=== PATIENT | female | born 1945 | race Caucasian/White ===

== ENCOUNTER 2019-01-26 23:38 | Emergency (ER) | payer MEDICARE, BC ==
[2019-01-26] MEDS ORDERED: cloNIDine 0.1 MG Tab PO ONE (23:42)
[2019-01-27] MEDS ORDERED: cloNIDine 0.1 MG Tab PO ONE (00:09)
[2019-01-27 00:22] LABS: CHLORIDE,CL 101 mmol/L (98-107); SODIUM,NA 138 mmol/L (136-145)
--- NOTE | 2019-01-27 00:50 | EDM.PDOC ---
ED HPI GENERAL MEDICAL PROBLEM - General Chief Complaint: Cardiovascular Problem Stated Complaint: High blood pressure Time Seen by Provider: 01/26/19 23:50 Source of Information: Reports: Patient History Limitations: Reports: No Limitations - History of Present Illness INITIAL COMMENTS - FREE TEXT/NARRATIVE: Patient is a 73-year-old female with known history of hypertension recently her medications were changed currently taking clonidine 0.1 mg twice a day blood pressure was elevated 203/104. Onset: Gradual Duration: Hour(s):, Getting Worse Location: Reports: Generalized Quality: Reports: Ache Severity: Moderate Improves with: Reports: Medication Worsens with: Reports: None Context: Reports: Exercise Associated Symptoms: Reports: No Other Symptoms, Other (Generalized aches and pains resolve with medications controlled) Neck Pain Score (Numeric/FACES): 7 - Related Data Allergies Allergy/AdvReac Type Severity Reaction Status Date / Time ciprofloxacin Allergy Diarrhea Verified 01/26/19 23:47 methotrexate Allergy Rash Verified 01/26/19 23:47 sulfamethoxazole Allergy Hives Verified 01/26/19 23:47 [From Bactrim] trimethoprim [From Bactrim] Allergy Hives Verified 01/26/19 23:47 Home Meds: Home Meds Aspirin [Ecotrin] 1 tab PO DAILY 03/08/14 [History] Triamcinolone Acetonide [Kenalog 0.1% Oint] 1 applic TOP TID PRN 03/08/14 [ History] Cholecalciferol (Vitamin D3) [Vitamin D3] 1,000 units PO DAILY 04/22/16 [History ] Clobetasol [Clobetasol 0.05%] 30 gm TOP BID PRN 04/22/16 [History] Hydrocortisone [Proctozone-HC 2.5% Crm] 1 gm RECTAL DAILY PRN 04/22/16 [History] Omeprazole 20 mg PO DAILY PRN 04/22/16 [History] Docusate Sodium/Sennosides [Senna Plus] 1 tab PO BID PRN #100 tablet 05/20/16 [ Rx] Menthol/Methyl Salicylate [Icy Hot Cream] 0 gm TOP ASDIRECTED PRN #0 tube [Rx] Multivitamins [Tab-A-Neha] 1 tab PO BEDTIME tablet 05/20/16 [Rx] Polyethylene Glycol 3350 [MiraLAX] 17 gm PO TID PRN #30 packet 05/20/16 [Rx] Carvedilol 25 mg PO BIDMEALS 01/26/19 [History] Fluticasone/Salmeterol [Advair 250-50 Diskus] 1 puff INH ASDIRECTED 01/26/19 [ History] Pravastatin [Pravachol] 20 mg PO BEDTIME 01/26/19 [History] cloNIDine [Catapres] 1 tab PO BID 01/26/19 [History] hydroCHLOROthiazide [Hydrochlorothiazide] 12.5 mg PO DAILY 01/26/19 [History] Past Medical History HEENT History: Reports: Cataract, Sinusitis Respiratory History: Reports: Pneumonia, Recurrent, SOB Gastrointestinal History: Reports: Hemorrhoids Musculoskeletal History: Reports: Arthritis, Osteoarthritis, Osteoporosis Neurological History: Reports: Headaches, Chronic Psychiatric History: Reports: Depression Endocrine/Metabolic History: Reports: Osteoporosis Hematologic History: Reports: Blood Transfusion(s) Oncologic (Cancer) History: Reports: Other (See Below) Other Oncologic History: skin right arm - Infectious Disease History Infectious Disease History: Reports: Chicken Pox - Past Surgical History Head Surgeries/Procedures: Reports: None HEENT Surgical History: Reports: Cataract Surgery GI Surgical History: Reports: Colonoscopy Endocrine Surgical History: Reports: None Musculoskeletal Surgical History: Reports: Knee Replacement, Shoulder Surgery Oncologic Surgical History: Reports: Other (See Below) Dermatological Surgical History: Reports: Skin Biopsy Social & Family History - Family History Musculoskeletal: Reports: Arthritis, Osteoarthritis, Osteoporosis Endocrine/Metabolic: Reports: Diabetes, Type I - Tobacco Use Smoking Status *Q: Never Smoker Second Hand Smoke Exposure: No - Caffeine Use Caffeine Use: Reports: None - Recreational Drug Use Recreational Drug Use: No - Living Situation & Occupation Living situation: Reports: ED ROS GENERAL - Review of Systems Review Of Systems: See Below Constitutional: Reports: No Symptoms HEENT: Reports: No Symptoms Respiratory: Reports: No Symptoms Cardiovascular: Reports: No Symptoms, Other (History over 10 on) Endocrine: Reports: No Symptoms GI/Abdominal: Reports: No Symptoms : Reports: No Symptoms Musculoskeletal: Reports: No Symptoms Skin: Reports: Cyanosis (Toes) Neurological: Reports: No Symptoms Psychiatric: Reports: No Symptoms Hematologic/Lymphatic: Reports: No Symptoms Immunologic: Reports: No Symptoms ED EXAM, GENERAL - Physical Exam Exam: See Below Exam Limited By: No Limitations General Appearance: Alert Ears: Normal External Exam Ear Exam: Bilateral Ear: Auricle Normal, Canal Normal, TM normal Nose: Normal Inspection, Normal Mucosa, No Blood Throat/Mouth: Normal Inspection, Normal Lips, Normal Teeth, Normal Gums, Normal Oropharynx, Normal Voice, No Airway Compromise Head: Atraumatic, Normocephalic Neck: Normal Inspection, Supple, Non-Tender, Full Range of Motion Respiratory/Chest: No Respiratory Distress, Lungs Clear, Normal Breath Sounds, No Accessory Muscle Use, Chest Non-Tender Cardiovascular: Normal Peripheral Pulses, Regular Rate, Rhythm, No Edema, No Gallop, No JVD, No Murmur, No Rub GI/Abdominal: Normal Bowel Sounds, Soft, Non-Tender, No Organomegaly, No Distention, No Abnormal Bruit, No Mass (Female) Exam: Deferred Rectal (Female) Exam: Heme - Stool Back Exam: Normal Inspection, Full Range of Motion, NT Extremities: Other (Cyanosis of lower extremities secondary to Raynaud's phenomena) Neurological: Alert, Oriented, CN II-XII Intact, Normal Cognition, Normal Gait, Normal Reflexes, No Motor/Sensory Deficits Psychiatric: Normal Affect, Normal Mood Skin Exam: Warm, Dry, Intact, Normal Color, No Rash Course - Vital Signs Last Recorded V/S: Last Vital Signs Temp 98.1 F 01/26/19 23:53 Pulse 86 01/26/19 23:53 Resp 16 01/26/19 23:53 BP 200/103 H 01/26/19 23:53 Pulse Ox 100 01/26/19 23:53 - Orders/Labs/Meds Labs: Laboratory Tests 01/26/19 01/26/19 Range/Units 00:03 00:03 WBC 9.0 (4.0-10.2) K/uL RBC 4.83 (3.77-5.09) M/uL Hgb 14.6 D (11.7-15.5) g/dL Hct 43.8 (34.0-46.0) % MCV 90.7 D (84.0-98.0) fL MCH 30.2 (28.2-33.3) pg MCHC 33.3 (31.7-36.0) g/dL RDW 13.9 (11.2-14.1) % Plt Count 256 D (150-350) K/uL Neut % (Auto) 68.9 (45.0-80.0) % Lymph % (Auto) 20.3 (10.0-50.0) % [place] % (Auto) 7.8 (2.0-14.0) % Eos % (Auto) 2.8 (0.0-5.0) % Baso % (Auto) 0.2 (0.0-2.0) % Neut # (Auto) 6.19 (1.40-7.00) K/uL Lymph # (Auto) 1.82 (0.50-3.50) K/uL [place] # (Auto) 0.70 (0.00-1.00) K/uL Eos # (Auto) 0.25 (0.00-0.50) K/uL Baso # (Auto) 0.02 (0.00-0.20) K/uL Sodium 138 (136-145) mmol/L Potassium 4.3 (3.5-5.1) mmol/L Chloride 101 (98-107) mmol/L Carbon Dioxide 26.5 (21.0-32.0) mmol/L BUN 17 (7-18) mg/dL Creatinine 0.83 (0.51-1.17) mg/dL Est Cr Clr Drug Dosing 47.74 mL/min Estimated GFR (MDRD) > 60 mL/min Glucose 100 (74-106) mg/dL Calcium 9.6 (8.5-10.1) mg/dL Meds: Medications Discontinued Medications Generic Name Dose Route Start Last Admin Trade Name Freq PRN Reason Stop Dose Admin Clonidine HCl 0.1 mg 01/26/19 23:42 01/26/19 23:50 Catapres PO 01/26/19 23:43 0.1 mg ONETIME ONE Administration Clonidine HCl 0.1 mg 01/27/19 00:09 Catapres PO 01/27/19 00:10 ONETIME ONE Departure - Departure Time of Disposition: 00:50 Disposition: Home, Self-Care 01 Condition: Good Clinical Impression: Hypertensive heart disease Qualifiers: Heart failure presence: unspecified whether heart failure present Qualified Code(s): I11.9 - Hypertensive heart disease without heart failure Referrals: Tiffany Anders MD [Primary Care Provider] - Care Plan Goals: Patient will be sent home her blood pressure was 132 /70 after being treated with clonidine 0.1 at this time we instructed the patient to take to clonidine' s in the morning and 2 in the afternoon and recheck her blood pressures follow- up with primary for medication adjustment
[2019-01-27 01:36] VITALS: BP 114/58
== END 2019-01-27 01:00 | disposition home or self-care (01) ==
LOC: LL.ED 23:38
DX: I11.9 Hypertensive heart disease without heart failure (principal); M19.90 Unspecified osteoarthritis, unspecified site; F32.9 Major depressive disorder, single episode, unspecified; Z79.82 Long term (current) use of aspirin; Z79.899 Other long term (current) drug therapy; Z88.1 Allergy status to other antibiotic agents; Z88.8 Allergy status to other drugs, medicaments and biological substances
CPT/HCPCS: 36415; 80048; 85025; 99284; A9270

== ENCOUNTER 2019-10-24 22:28 | Emergency (ER) | payer MEDICARE, BC ==
[2019-10-24 22:43] VITALS: BP 122/62; PULSE 74
--- NOTE | 2019-10-24 22:45 | EDM.PDOC ---
ED HPI GENERAL MEDICAL PROBLEM - General Chief Complaint: ENT Problem Stated Complaint: Nose Bleed Time Seen by Provider: 10/24/19 22:45 Source of Information: Reports: Patient, Old Records ([facility] chart/EMR) History Limitations: Reports: No Limitations - History of Present Illness INITIAL COMMENTS - FREE TEXT/NARRATIVE: The patient drove herself to the emergency room via private automobile for evaluation of moderate right-sided epistaxis, which started at about 18:15 hours this evening. She does take a daily aspirin, including this evening, however no history of recent injury, etc. The patient does have a history of distant epistaxis in the past, however this is not a significant recurrent problem. Her epistaxis has been refractory to nasal packing with cotton balls, which the patient tried this evening. The patient denies any chest pain/pressure , heart flutter, dizziness, orthostasis, orthopnea, diaphoresis, paresthesias, recent decreased exercise tolerance, or any other anginal-type symptoms. No recent history of abdominal pain, heartburn, nausea, diarrhea, melena, gross hematochezia, or any food intolerance, including fatty foods, etc.. The patient also denies any recent fever, wheezing, dyspnea, etc. with stable chronic nonproductive cough secondary to her COPD. She denies any pain or discomfort. Onset: Today, Sudden Onset Date: 10/24/19 Onset Time: 18:15 Duration: Intermittent, Improving Location: Reports: Other (Right epistaxis is no pain) Quality: Reports: Same as Previous Episode Severity: Moderate Improves with: Reports: None Worsens with: Reports: None Context: Reports: Other (As above). Denies: Sick Contact, Trauma Associated Symptoms: Reports: Cough (Stable chronic), Shortness of Breath ( Stable chronic). Denies: Confusion, Chest Pain, cough w sputum, Diaphoresis, Fever/Chills, Headaches, Loss of Appetite, Malaise, Nausea/Vomiting, Rash, Seizure, Syncope, Weakness Treatments [employer]: Reports: Other (see below) (As above) - Related Data Allergies Allergy/AdvReac Type Severity Reaction Status Date / Time ciprofloxacin Allergy Diarrhea Verified 10/24/19 22:52 methotrexate Allergy Rash Verified 10/24/19 22:52 sulfamethoxazole Allergy Hives Verified 10/24/19 22:52 [From Bactrim] trimethoprim [From Bactrim] Allergy Hives Verified 10/24/19 22:52 Home Meds: Home Meds Triamcinolone Acetonide [Kenalog 0.1% Oint] 1 applic TOP TID PRN 03/08/14 [ History] Cholecalciferol (Vitamin D3) [Vitamin D3] 1,000 units PO DAILY 04/22/16 [History ] Clobetasol [Clobetasol 0.05%] 30 gm TOP BID PRN 04/22/16 [History] Hydrocortisone [Proctozone-HC 2.5% Crm] 1 gm RECTAL DAILY PRN 04/22/16 [History] Omeprazole 20 mg PO BIDMEALS 04/22/16 [History] Docusate Sodium/Sennosides [Senna Plus] 1 tab PO BID PRN #100 tablet 05/20/16 [ Rx] Multivitamins [Tab-A-Neha] 1 tab PO BEDTIME tablet 05/20/16 [Rx] Polyethylene Glycol 3350 [MiraLAX] 17 gm PO TID PRN #30 packet 05/20/16 [Rx] Fluticasone/Salmeterol [Advair 250-50 Diskus] 1 puff INH DAILY 01/26/19 [History ] Pravastatin [Pravachol] 20 mg PO BEDTIME 01/26/19 [History] carvediloL [Carvedilol] 25 mg PO BIDMEALS 01/26/19 [History] cloNIDine [Catapres] 0.1 mg PO BID 01/26/19 [History] hydroCHLOROthiazide [Hydrochlorothiazide] 12.5 mg PO DAILY 01/26/19 [History] Menthol/Methyl Salicylate [Icy Hot Cream] 1 applic TOP ASDIRECTED PRN 10/24/19 [ History] Past Medical History HEENT History: Reports: Cataract, Sinusitis. Denies: Hard of Hearing, Impaired Vision Cardiovascular History: Reports: Cardiomyopathy, High Cholesterol, Hypertension , Other (See Below). Denies: Blood Clots/VTE/DVT, CAD, IA Other Cardiovascular History: Left ventricular hypertrophy and left atrial enlargement by echocardiogram. History of d-dimer elevation in 2012 with negative workup as below. Respiratory History: Reports: Bronchitis, Recurrent, COPD, Intubation, Previous , Pneumonia, Recurrent, Sleep Apnea, SOB, Other (See Below). Denies: Intubation , Difficult, PE Other Respiratory History: Severe obstructive sleep apnea. Gastrointestinal History: Reports: Cholelithiasis, Chronic Constipation, GERD, Hemorrhoids : 0 Para: 0 LMP (Approximate): Menopausal Musculoskeletal History: Reports: Arthritis, Back Pain, Chronic, Fibromyalgia, Neck Pain, Chronic, Osteoarthritis, Osteoporosis, RA, Other (See Below). Denies : SLE Other Musculoskeletal History: Rheumatoid arthritis with positive SUDEEP. Right shoulder rotator cuff tear requiring surgery as below. Plantar fasciitis. Neurological History: Reports: Headaches, Chronic Psychiatric History: Reports: Anxiety, Depression Endocrine/Metabolic History: Reports: Obesity/BMI 30+, Osteopenia, Osteoporosis , Other (See Below) Other Endocrine/Metabolic History: Hypoalbuminemia. Hematologic History: Reports: Anemia, Blood Transfusion(s), Other (See Below) Other Hematologic History: Postoperative anemia after bilateral total knee arthroplasty with blood transfusion on 05/01/16. Oncologic (Cancer) History: Reports: Basal Cell Carcinoma, Other (See Below) Other Oncologic History: Basal cell carcinoma of the right arm Dermatologic History: Reports: Urticaria - Infectious Disease History Infectious Disease History: Reports: Chicken Pox - Past Surgical History Head Surgeries/Procedures: Reports: None HEENT Surgical History: Reports: Cataract Surgery, Oral Surgery, Other (See Below). Denies: Adenoidectomy, Tonsillectomy Other HEENT Surgeries/Procedures: Bilateral cataract surgery in about 2009. Multiple teeth extractions with complete upper dentures. GI Surgical History: Reports: Cholecystectomy, Colonoscopy, Other (See Below) Other GI Surgeries/Procedures: Laparoscopic cholecystectomy on 09/17/11. Endocrine Surgical History: Reports: None Musculoskeletal Surgical History: Reports: Knee Replacement, Shoulder Surgery, Other (See Below) Other Musculoskeletal Surgeries/Procedures:: Right shoulder rotator cuff repair with hemiarthroplasty on 02/14/15. Bilateral total knee arthroplasty on 04/17/16. Bilateral bunionectomy. Oncologic Surgical History: Reports: Other (See Below) Other Oncologic Surgeries/Procedures: Excision of basal cell carcinoma from the right arm as above. Dermatological Surgical History: Reports: None - Past Imaging History Past Imaging History: Reports: Cardiac Echo (Suboptimal echocardiogram on with findings as above with ejection fraction of 73%.), CAT Scan (Negative CTA of the chest using PE protocol on 12/31/11.), Mammogram (Last mammogram on .), MRI (MRI of the right shoulder on 10/18/14. MRI of the left hip in lumbar spine on 01/26/12.), Sleep Study (Positive sleep study on 06/13/18.), Stress Testing (Negative Lexiscan Cardiolite evaluation on 08/28/19 with ejection fraction of 64%.), Venous Doppler (Legs bilaterally on 01/01/12.) Social & Family History - Family History Cardiac: Reports: Other (See Below) Other Cardiac Family History: Unknown type of heart disease on maternal side. Musculoskeletal: Reports: Arthritis, Osteoarthritis, Osteoporosis Endocrine/Metabolic: Reports: Diabetes, Type I Oncologic: Reports: Breast, Lung, Other (See Below) Other Oncologic Family History: Mother with breast cancer in her early 70s. Brother with lung cancer. - Tobacco Use Smoking Status *Q: Former Smoker Tobacco Use Within Last Twelve Months: No Years of Tobacco use: 7 Packs/Tins Daily: 0.2 Packs/Tins Daily Comment: She smoked between ages 18 and 25. Used Tobacco, but Quit: Yes Smoking Cessation Information Provided To Patient: No Second Hand Smoke Exposure: No Second Hand Smoke Education Provided: No - Caffeine Use Caffeine Use: Reports: None ED ROS ENT - Review of Systems Review Of Systems: Comprehensive ROS is negative, except as noted in HPI. ED EXAM, ENT - Physical Exam Exam: See Below Exam Limited By: No Limitations General Appearance: Alert, WD/WN, No Apparent Distress Eye Exam: Bilateral Eye: EOMI, Normal Inspection (No nystagmus), PERRL Ears: Normal External Exam, Normal Canal, Hearing Grossly Normal, Normal TMs Nose: Dried Blood (Right nares and), Injected Turbinates. No: Nasal Tenderness , Nasal Ecchymosis, Septal Hematoma, Active Bleeding Mouth/Throat: Bleeding (Dry blood in the hypopharynx from epistaxis as above). No: Normal Teeth (Complete upper dentures with multiple missing teeth lowers and the patient not normally having lower partials.) Head: Atraumatic, Normocephalic. No: Facial Tenderness, Sinus Tenderness Neck: Supple, Non-Tender, Full Range of Motion, Carotid Bruit (Mild bilateral carotid bruits). No: Lymphadenopathy (L), Lymphadenopathy (R), Thyromegaly Respiratory/Chest: No Respiratory Distress, Lungs Clear, Normal Breath Sounds, No Accessory Muscle Use, Chest Non-Tender. No: Pleural Rub, Retractions Cardiovascular: Normal Peripheral Pulses, Regular Rate, Rhythm, No Edema, No Gallop, No JVD, No Murmur, No Rub. No: Gallop/S3, Gallop/S4, Friction Rub GI/Abdominal: Normal Bowel Sounds, Soft, Non-Tender, No Organomegaly, No Distention, No Abnormal Bruit, No Mass, Other (Obese). No: Guarding (Female) Exam: Deferred Rectal (Female) Exam: Deferred Back: Normal Inspection, Full Range of Motion. No: CVA Tenderness (L), CVA Tenderness (R), Muscle Spasm Extremities: Normal Inspection, Normal Range of Motion, Non-Tender, No Pedal Edema, Normal Capillary Refill. No: Aurelio's Sign Neurological: Alert, Oriented, CN II-XII Intact, Normal Cognition, Normal Gait, No Motor/Sensory Deficits Psychiatric: Normal Affect, Normal Mood Skin: Warm, Dry, Intact, Normal Color, No Rash. No: Diaphoretic, Ecchymosis, Wound/Incision Lymphatic: No Adenopathy ED ENT PROCEDURES - Epistaxis Procedure Indication: Epistaxis Recent anticoagulants/antiplatlets: Yes (Aspirin) Uncontrolled HTN: No Recent septal/nasal surgery: No Site of bleeding: Right Nare Clearing of clots: Other (Gargle) Ice pack to area: Yes Anterior Packing: Petrolatum Guaze Strip (Bilaterally) Complications: No Course - Vital Signs Last Recorded V/S: Last Vital Signs Temp 36.6 C 10/24/19 22:30 Pulse 74 10/24/19 22:30 Resp 16 10/24/19 22:30 BP 122/62 10/24/19 22:30 Pulse Ox 96 10/24/19 22:30 Vital Signs - 24 hr 10/24/19 22:30 Temperature [ 36.6 C Temporal] Pulse, 74 Peripheral [ Pulse Oximetry] Respiratory 16 Rate Blood Pressure 122/62 [Left Upper Arm ] O2 Sat by Pulse 96 Oximetry - Orders/Labs/Meds Orders: Active Orders 24 hr Category Date Time Status Obtain Past Medical Record [OM.PC] Routine Oth 10/24/19 22:46 Active Labs: None Meds: None - Radiology Interpretation Free Text/Narrative:: None Departure - Departure Time of Disposition: 23:25 Disposition: Home, Self-Care 01 Condition: Good Clinical Impression: Rheumatoid arteritis, Peptic reflux disease, HTN, Benign hypertension, Epistaxis, COPD (chronic obstructive pulmonary disease), Sleep apnea, Hyperlipidemia - Discharge Information *PRESCRIPTION DRUG MONITORING PROGRAM REVIEWED*: Not Applicable *COPY OF PRESCRIPTION DRUG MONITORING REPORT IN PATIENT JOHN: Not Applicable Instructions: Nosebleed, [id number] Referrals: Monse Rivera [employer] SUPERVISOR [Primary Care Provider] - Forms: ED Department Discharge Additional Instructions: 1. Followup with your regular provider in 1-2 days as directed for reevaluation and removal of nasal packing. Bring these discharge instructions with you to that visit. 2. Discontinue aspirin until otherwise directed by your regular provider. Discuss with your regular provider at follow-up possibility of discontinuation of your aspirin on a long-term basis secondary to new guidelines concerning preventative aspirin use without a diagnosis of true coronary artery disease. 3. Immediately after this visit verify that your cellular telephone's voicemail has been activated and is empty. Also verify that your home telephone 's answering machine is operating properly and has space to receive messages. Note that it is sometimes necessary for us to be able to contact you at a later date to discuss your medical care. 4. Ice packs to the neck and pressure to the nose as directed, if nosebleeds recur. 5. Avoid all NSAIDs, including ibuprofen, Aleve, etc. until otherwise directed 6. Please remember that we are ALWAYS here for you and want to answer any questions you may have. Feel free to call the hospital any time and we call you back LORIN. Sepsis Event Note - Evaluation Sepsis Screening Result: No Definite Risk - Focused Exam Vital Signs: Vital Signs Temp Pulse Resp BP Pulse Ox 10/24/19 22:30 36.6 C 74 16 122/62 96 Date Exam was Performed: 10/24/19 Time Exam was Performed: 23:32 - Problem List & Annotations (1) Epistaxis SNOMED Code(s): 377915628 Code(s): R04.0 - EPISTAXIS Status: Acute Priority: High Onset Date: 01/07 Annotation/Comment:: No evidence of acute bleeding at time of arrival to the emergency room with no significant hypervascularity requiring several nitrate cauterization. Bilateral nasal packing conducted without complications. No evidence of recurrence of epistaxis after extended observation of the patient in the emergency room. She was advised to discontinue her aspirin as per discharge instructions. Close follow-up by regular provider. (2) HTN, Benign hypertension SNOMED Code(s): 44596825 Code(s): I10 - ESSENTIAL (PRIMARY) HYPERTENSION Status: Chronic Priority : Medium Annotation/Comment:: Blood Pressures under good control in the emergency room. Continue to observe her blood pressure closely on an outpatient basis. (3) Peptic reflux disease SNOMED Code(s): 586390031 Code(s): K21.9 - GASTRO-ESOPHAGEAL REFLUX DISEASE WITHOUT ESOPHAGITIS Status: Chronic Priority: Low Annotation/Comment:: Nonsymptomatic at this time (4) Rheumatoid arteritis SNOMED Code(s): 285075772 Code(s): I00 - RHEUMATIC FEVER WITHOUT HEART INVOLVEMENT Status: Chronic Priority: Medium Annotation/Comment:: Stable by patient history. No recent NSAID use other than daily aspirin as above. (5) COPD (chronic obstructive pulmonary disease) SNOMED Code(s): 39983768 Code(s): J44.9 - CHRONIC OBSTRUCTIVE PULMONARY DISEASE, UNSPECIFIED Status : Chronic Priority: Medium Annotation/Comment:: Stable by history with recent fever or bronchitic type symptoms. Qualifiers: COPD type: emphysema Emphysema type: panlobular Qualified Code(s): J43.1 - Panlobular emphysema (6) Hyperlipidemia SNOMED Code(s): 49762340 Code(s): E78.5 - HYPERLIPIDEMIA, UNSPECIFIED Status: Chronic Priority: Medium Annotation/Comment:: Currently under therapy. Note obesity. Weight loss in moderation is advisable. Qualifiers: Hyperlipidemia type: unspecified Qualified Code(s): E78.5 - Hyperlipidemia , unspecified - Problem List Review Problem List Initiated/Reviewed/Updated: Yes - My Orders Last 24 Hours: My Active Orders 10/24/19 22:46 Obtain Past Medical Record [OM.PC] Routine - Assessment/Plan Last 24 Hours: My Active Orders 10/24/19 22:46 Obtain Past Medical Record [OM.PC] Routine Assessment:: As above Plan: As above. Extensive precautions were given to the patient, who is in agreement with the treatment plan. See Patient Instructions for further treatment and plan.
== END 2019-10-24 23:23 | disposition home or self-care (01) ==
LOC: LL.ED 22:28
DX: R04.0 Epistaxis (principal); I00 Rheumatic fever without heart involvement; K21.9 Gastro-esophageal reflux disease without esophagitis; I10 Essential (primary) hypertension; J44.9 Chronic obstructive pulmonary disease, unspecified; G47.30 Sleep apnea, unspecified; E78.5 Hyperlipidemia, unspecified; E78.00 Pure hypercholesterolemia, unspecified; M06.9 Rheumatoid arthritis, unspecified; E66.9 Obesity, unspecified; Z79.82 Long term (current) use of aspirin; Z88.1 Allergy status to other antibiotic agents; Z88.8 Allergy status to other drugs, medicaments and biological substances; Z79.899 Other long term (current) drug therapy; Z79.51 Long term (current) use of inhaled steroids; Z87.891 Personal history of nicotine dependence
CPT/HCPCS: 30901; 99283-25